=== PATIENT | male | born 2000 | race Caucasian/White ===

== ENCOUNTER 2023-02-24 13:40 | Emergency (ER) | payer BC ==
[2023-02-24] MEDS ORDERED: Acetaminophen 500 MG Tab PO ONE (14:13)
[2023-02-24] MEDS ORDERED: Ibuprofen 600 MG Tab PO ONE (14:13)
== END 2023-02-24 16:10 | disposition home or self-care (01) ==
LOC: FB.ED 13:40
DX: S60.221A Contusion of right hand, initial encounter (principal); F17.210 Nicotine dependence, cigarettes, uncomplicated; W22.8XXA Striking against or struck by other objects, initial encounter
CPT/HCPCS: 73130-RT; 99283; A9270-GY

== ENCOUNTER 2023-09-30 14:33 | Emergency (ER) | payer BC ==
[2023-09-30 15:00] LABS: BASOPHILS PERCENT AUTO 0.4 % (0.3-3.8); EOSINOPHILS ABSOLUTE AUTO 0.1 x10-3/uL (0.0-0.6); EOSINOPHILS PERCENT AUTO 1.6 % (0.1-6.8); HEMATOCRIT 41.4 % (38.3-50.1); HEMOGLOBIN 14.5 g/dL (12.9-17.7); LYMPHOCYTES PERCENT AUTO 12.4 % (15.8-45.3); MEAN CORPUSCULAR HGB CONC 35.1 g/dL (28.7-35.3); MEAN CORPUSCULAR VOLUME 91.3 fL (80.8-98.7); MONOCYTES ABSOLUTE AUTO 0.5 x10-3/uL (0.0-1.2); MONOCYTES PERCENT AUTO 6.5 % (5.5-15.2); NEUTROPHILS ABSOLUTE AUTO 6.5 x10-3/uL (1.7-6.9); NEUTROPHILS PERCENT AUTO 79.1 % (40.3-71.8); PLATELET COUNT,PLT 249 x10(3)uL (117-477); RED BLOOD CELL COUNT 4.54 x10(6)uL (3.90-5.90); RED CELL DISTRIBUTION WIDTH 12.5 % (12.4-15.0); WHITE BLOOD CELL COUNT,WBC 8.3 x10-3/uL (3.2-10.1)
[2023-09-30 15:08] LABS: BLOOD UREA NITROGEN,BUN 7 mg/dL (7-18); CALCIUM 8.6 mg/dL (8.6-10.2); CARBON DIOXIDE,CO2 23 mmol/L (21-32); CHLORIDE,CL 103 mmol/L (100-110); ESTIMATED GFR 109 mL/min (>60); GLUCOSE RANDOM 98 mg/dL (80-116); POTASSIUM,K 3.5 mmol/L (3.5-5.3); SODIUM,NA 138 mmol/L (135-145)
[2023-09-30 15:13] LABS: A/G RATIO 1.4; ALANINE AMINOTRANSFERASE,ALT 12 U/L (12-36); ALBUMIN 3.9 g/dL (3.5-5.2); ALKALINE PHOSPHATASE 75 IU/L (56-112); ASPARTATE AMNIOTRANSFERASE,AST 13 IU/L (5-25); BILIRUBIN TOTAL 1.2 mg/dL (0.1-1.3); PROTEIN TOTAL,TP 6.7 g/dL (6.0-8.0)
== END 2023-09-30 16:03 | disposition home or self-care (01) ==
LOC: FB.ED 14:33
DX: F41.9 Anxiety disorder, unspecified (principal); F15.10 Other stimulant abuse, uncomplicated; F17.210 Nicotine dependence, cigarettes, uncomplicated
CPT/HCPCS: 36415; 80053; 85025; 99284

== ENCOUNTER 2024-01-01 17:37 | Emergency (ER) | payer BC ==
[2024-01-01] MEDS: Amoxicillin/Clavulanate K 875-125 MG Tab PO ONE (18:19)
[2024-01-01] MEDS: Lidocaine 2% Viscous Solution 15 ML UD TOP ONE (18:19)
[2024-01-01] MEDS: Acetaminophen 500 MG Tab PO ONE (18:19)
[2024-01-01] MEDS: Ibuprofen 400 MG Tab PO ONE (18:19)
== END 2024-01-01 18:44 | disposition home or self-care (01) ==
LOC: FB.ED 17:37
DX: K04.7 Periapical abscess without sinus (principal)
CPT/HCPCS: 99282; A9270; 99283